=== PATIENT | male | born 1955 | race Caucasian/White ===

== ENCOUNTER → 2016-12-13 | Outpatient (CLI) | payer BC ==
[~2016-12-13] MED LIST: ASPI81TA28 PO; CHOL2000 PO; MULT-360 PO; OMEG10007 PO
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
== END ==
LOC: C.ALS 17:12
PROVIDERS: ATTEND Student in an Organized Health Care Education/Training Program
DX: S09.90XA Unspecified injury of head, initial encounter (principal); Y24.9XXA Unspecified firearm discharge, undetermined intent, initial encounter